=== PATIENT | male | born 1930 | race Caucasian/White ===

== ENCOUNTER 2017-06-09 14:57 | Emergency (ER) | payer MEDICARE, OTHER ==
[~2017-06-09] VITALS: Ht 172.7 cm; Wt 81.0 kg
[~2017-06-09 14:57] MED LIST: ASPI-1159 PO; BIMA2.5D4 OP; DIGO125T82 PO; DIVA500T51 PO; FINA5TAB11 PO; FLUO-123 PO; FURO40TA5 PO; GABA100C PO; GABA300C PO; LEVO25TA7 PO; MELA5TAB3 PO; PRAV20TA57 PO; RISP0.2514 PO; TAMS0.4C31 PO
[2017-06-09 16:34] LABS: BASOPHILS % 0.6 % (0.0-2.0); EOSINOPHILS % 4.2 % (0.0-5.0); HEMATOCRIT. 28.1 % (42.0-52.0); HEMOGLOBIN. 9.4 g/dL (14.0-18.0); LYMPHOCYTES % 12.2 % (20.0-50.0); MEAN CORPUSCULAR HEMOGLOBIN 32.5 pg (28.0-32.0); MEAN CORPUSCULAR VOLUME 97.2 fL (80.0-94.0); MEAN PLATELET VOLUME 7.9 fl (7.4-10.4); MONOCYTES % 10.1 % (2.0-8.0); NEUTROPHILS % 72.9 % (40.0-76.0); PLATELET 182 x1000/uL (130-400); RED BLOOD CELL COUNT 2.89 mill/uL (4.7-6.1); RED CELL DISTRIBUTION WIDTH 16.9 % (11.6-14.6)
[2017-06-09 16:39] LABS: CHLORIDE 106 mEq/L (98-107)
[2017-06-09 16:42] LABS: INR 1.2; PARTIAL THROMBOPLASTIN TIME 25.5 sec (23.4-31.0); PROTHROMBIN TIME 12.9 sec (9.4-11.6)
[2017-06-09 18:45] VITALS: BP 144/65
== END 2017-06-09 18:46 | disposition home or self-care (01) ==
LOC: ER 14:57
DX: S00.81XA Abrasion of other part of head, initial encounter (principal); I50.9 Heart failure, unspecified; F03.90 Unspecified dementia, unspecified severity, without behavioral disturbance, psychotic disturbance, mood disturbance, and anxiety; I95.9 Hypotension, unspecified; I49.9 Cardiac arrhythmia, unspecified; Z87.891 Personal history of nicotine dependence; Z79.82 Long term (current) use of aspirin; Z95.0 Presence of cardiac pacemaker; W01.0XXA Fall on same level from slipping, tripping and stumbling without subsequent striking against object, initial encounter; Y93.89 Activity, other specified; Y92.89 Other specified places as the place of occurrence of the external cause; Y99.8 Other external cause status
CPT/HCPCS: 36415; 70450; 71045; 80053; 84484; 85025; 85610; 85730; 93005; 99285

== ENCOUNTER 2018-01-11 04:08 | Inpatient (IN) | payer MEDICARE, OTHER ==
[~2018-01-11] VITALS: Ht 160 cm; Wt 70.3 kg
[2018-01-11] MEDS ORDERED: TETANUS, DIPHTHERIA, PERTUSSIS VAC/PF 0.5ML (>7YR OLD) IM ONE (05:00)
[2018-01-11 05:38] LABS: BASOPHILS % 0.9 % (0.0-2.0); EOSINOPHILS % 5.4 % (0.0-5.0); HEMATOCRIT. 29.8 % (42.0-52.0); HEMOGLOBIN. 9.9 g/dL (14.0-18.0); LYMPHOCYTES % 22.3 % (20.0-50.0); MEAN CORPUSCULAR HEMOGLOBIN 33.2 pg (28.0-32.0); MEAN CORPUSCULAR VOLUME 99.4 fL (80.0-94.0); MEAN PLATELET VOLUME 8.7 fl (7.4-10.4); MONOCYTES % 9.4 % (2.0-8.0); PLATELET 115 x1000/uL (130-400); RED CELL DISTRIBUTION WIDTH 15.8 % (11.6-14.6)
[2018-01-11 05:49] LABS: CHLORIDE 106 mEq/L (98-107)
[2018-01-11 06:00] LABS: CLARITY URINE CLEAR (CLEAR); COLOR URINE YELLOW (YELLOW); KETONES URINE NEGATIVE (NEGATIVE); LEUKOCYTE ESTERASE URINE NEGATIVE (NEGATIVE); NITRITE URINE NEGATIVE (NEGATIVE); OCCULT BLOOD URINE NEGATIVE (NEGATIVE); PH URINE 6.5 (4.5-8.0); PROTEIN URINE NEGATIVE (NEGATIVE); SPECIFIC GRAVITY URINE 1.012 (1.005-1.030); UROBILINOGEN URINE 0.2 E.U./dL (0.2-1.0)
[2018-01-11] MEDS ORDERED: SODIUM CHLORIDE 0.9% 1,000 ML IV ONE (09:00)
[2018-01-11] MEDS ORDERED: IPRATROPIUM/ALBUTEROL 0.5-3(2.5)MG/3ML NEB INH PRN (11:15)
[2018-01-11] MEDS ORDERED: DOCUSATE SODIUM 100MG CAPSULE PO PRN (11:15)
[2018-01-11] MEDS ORDERED: NA PHOS,M-B/NA PHOS,DI-BA ENEMA 118ML PR PRN (11:15)
[2018-01-11] MEDS ORDERED: DIPHENHYDRAMINE 50MG/ML VIAL IV PRN (11:15)
[2018-01-11] MEDS ORDERED: ONDANSETRON HCL 4MG/2ML INJ IV PRN (11:15)
[2018-01-11] MEDS ORDERED: CLONIDINE 0.1MG TABLET PO PRN (11:15)
[2018-01-11] MEDS ORDERED: ACETAMINOPHEN 650MG SUPP PR PRN (11:15)
[2018-01-11] MEDS ORDERED: HYDROCODONE/ACETAMINOPHEN 5/325MG TABLET PO PRN (11:15)
[2018-01-11] MEDS ORDERED: ACETAMINOPHEN 325MG TABLET PO PRN (11:15)
[2018-01-11] MEDS ORDERED: GUAIFENESIN 200MG/10ML SUGAR FREE UDC PO PRN (11:15)
[2018-01-11] MEDS ORDERED: MAGNESIUM/ALUMINUM HYDROXIDE/SIMETHICONE 30ML UDC PO PRN (11:15)
[2018-01-11 11:34] VITALS: BP 108/60
[2018-01-11 12:00] VITALS: BP 108/60
[2018-01-11 13:31] LABS: HEMATOCRIT 27.7 % (42.0-52.0); HEMOGLOBIN 9.3 g/dL (14.0-18.0); MEAN CORPUSCULAR VOLUME 98.7 fL (80.0-94.0); PLATELET 108 x1000/uL (130-400); RED BLOOD CELL COUNT 2.81 mill/uL (4.7-6.1)
[2018-01-11 13:47] LABS: T4 FREE 1.02 ng/dL (0.76-1.46)
[2018-01-11 14:14] LABS: CREATINE KINASE MB FRACTION 7.7 ng/mL (0.5-3.6)
[2018-01-11 14:26] LABS: DIGOXIN 0.6 ng/mL (0.9-2.0)
[2018-01-11 14:30] LABS: INR 1.2; PROTHROMBIN TIME 11.7 sec (9.1-11.1)
[2018-01-11] MEDS: SODIUM CHLORIDE 0.45% 1,000 ML IV SCH (15:07)
[2018-01-11] MEDS: TAMSULOSIN HCL 0.4MG SR CAPSULE PO SCH (15:07)
[2018-01-11] MEDS: RISPERIDONE 0.25MG TABLET PO SCH (15:08)
[2018-01-11] MEDS: FUROSEMIDE 40MG TABLET PO SCH (15:08)
[2018-01-11] MEDS: FINASTERIDE 5MG TABLET PO SCH (15:08)
[2018-01-11 16:00] VITALS: BP_SYST 113; BP_SYST 126; BP_DIAS 71; BP_DIAS 83
[2018-01-11] MEDS ORDERED: MIDO2.5T MT (16:05)
[2018-01-11] MEDS ORDERED: FERR325T6 MT (16:06)
[2018-01-11] MEDS: DIVALPROEX SODIUM 250MG ER TABLET PO SCH (17:14)
[2018-01-11 20:00] VITALS: BP_SYST 112; BP_SYST 94; BP_DIAS 55; BP_DIAS 61
[2018-01-11] MEDS ORDERED: ATORVASTATIN CALCIUM 20MG TABLET PO SCH (21:00)
[2018-01-11] MEDS ORDERED: FLUOXETINE HCL 10 MG CAPSULE PO SCH (21:00)
[2018-01-11] MEDS ORDERED: FLUOXETINE HCL 10 MG PO SCH (21:00)
[2018-01-12] VITALS (8 sets, daily range): BP systolic 98–128; BP diastolic 51–67
[2018-01-12] MEDS: LORAZEPAM 0.5MG TABLET PO PRN ×2 (00:32→13:41)
[2018-01-12 00:47] LABS: CREATINE KINASE MB FRACTION 6.5 ng/mL (0.5-3.6)
[2018-01-12] MEDS ORDERED: TEMA15CA MT (00:50)
[2018-01-12] MEDS ORDERED: TEMAZEPAM 15MG CAPSULE PO PRN (01:00)
[2018-01-12] MEDS ORDERED: TRAZ-212 PO (02:52)
[2018-01-12 06:24] LABS: BASOPHILS % 0.4 % (0.0-2.0); EOSINOPHILS % 1.7 % (0.0-5.0); HEMATOCRIT. 27.3 % (42.0-52.0); HEMOGLOBIN. 9.2 g/dL (14.0-18.0); LYMPHOCYTES % 10.6 % (20.0-50.0); MEAN CORPUSCULAR HEMOGLOBIN 33.2 pg (28.0-32.0); MEAN PLATELET VOLUME 8.4 fl (7.4-10.4); MONOCYTES % 7.5 % (2.0-8.0); NEUTROPHILS % 79.8 % (40.0-76.0); PLATELET 114 x1000/uL (130-400); RED BLOOD CELL COUNT 2.78 mill/uL (4.7-6.1); RED CELL DISTRIBUTION WIDTH 15.9 % (11.6-14.6)
[2018-01-12] MEDS ORDERED: LEVOTHYROXINE SODIUM 25MCG TABLET PO SCH (07:20)
[2018-01-12 08:01] LABS: CHLORIDE 107 mEq/L (98-107)
[2018-01-12 08:10] LABS: LDL CHOLESTEROL 104 mg/dL (5-100)
[2018-01-12 08:12] LABS: HDL CHOLESTEROL 44 mg/dL (40-59)
[2018-01-12] MEDS: RISPERIDONE 0.25MG TABLET PO SCH (09:00)
[2018-01-12] MEDS: FUROSEMIDE 40MG TABLET PO SCH (09:00)
[2018-01-12] MEDS: TAMSULOSIN HCL 0.4MG SR CAPSULE PO SCH (09:00)
[2018-01-12] MEDS: DIVALPROEX SODIUM 250MG ER TABLET PO SCH (09:00)
[2018-01-12] MEDS ORDERED: MEDICATION NOT ON FORMULARY EA (Finasteride 1 TAB) PO SCH (09:00)
[2018-01-12] MEDS: FINASTERIDE 5MG TABLET PO SCH (09:00)
[2018-01-12] MEDS: SODIUM CHLORIDE 0.45% 1,000 ML IV SCH (12:25)
== END 2018-01-12 19:20 | disposition hospice, home (50) | DRG 872 ==
LOC: ER 04:08 → 6WST 09:14 → EDBEDREQ 09:16 → EDBEDREQTM 09:16 → ENRESERV 10:19 → SUPCPDRO 11:03
PROVIDERS: ADMIT Internal Medicine; ATTEND Internal Medicine
DX: A41.9 Sepsis, unspecified organism (principal); S01.01XA Laceration without foreign body of scalp, initial encounter; D18.00 Hemangioma unspecified site; D64.9 Anemia, unspecified; D69.6 Thrombocytopenia, unspecified; E03.9 Hypothyroidism, unspecified; F03.90 Unspecified dementia, unspecified severity, without behavioral disturbance, psychotic disturbance, mood disturbance, and anxiety; G40.909 Epilepsy, unspecified, not intractable, without status epilepticus; I48.91 Unspecified atrial fibrillation; M12.9 Arthropathy, unspecified; M47.892 Other spondylosis, cervical region; I12.9 Hypertensive chronic kidney disease with stage 1 through stage 4 chronic kidney disease, or unspecified chronic kidney disease; M48.02 Spinal stenosis, cervical region; M50.30 Other cervical disc degeneration, unspecified cervical region; M51.37 Other intervertebral disc degeneration, lumbosacral region; M85.80 Other specified disorders of bone density and structure, unspecified site; N18.9 Chronic kidney disease, unspecified; N40.0 Benign prostatic hyperplasia without lower urinary tract symptoms; T68.XXXA Hypothermia, initial encounter; W18.39XA Other fall on same level, initial encounter; Y93.89 Activity, other specified; Y92.098 Other place in other non-institutional residence as the place of occurrence of the external cause; Y99.8 Other external cause status; Z95.810 Presence of automatic (implantable) cardiac defibrillator
CPT/HCPCS: 36415; 71045; 72170; 73560; 80048; 80061; 80162; 82550; 82553; 84153; 84439; 84443; 84484; 85027; 86850; 86900; 90471; 90715; 92610; 93306; 93880; 96360; 97116; 97162; 99285; J7030; G0103